=== PATIENT | female | born 1990 | race Caucasian/White ===

== ENCOUNTER 2017-02-10 14:16 | Inpatient (IN) | payer OTHER ==
[~2017-02-10] VITALS: Ht 165.1 cm; Wt 63.0 kg
[2017-02-10 15:08] LABS: CALCIUM 9.1 mg/dL (8.5-10.1); CARBON DIOXIDE 23.9 mmol/L (21-32); CHLORIDE SERUM 104 mmol/L (98-107); CREATININE SERUM 0.8 mg/dL (0.6-1.0); GFR1 > 60 mL/min; GLUCOSE SERUM 122 mg/dL (74-106); POTASSIUM SERUM 3.3 mmol/L (3.5-5.1); SODIUM SERUM 140 mmol/L (136-145)
[2017-02-10 15:09] LABS: BASOPHIL % 0.3 % (0-2); PLATELET COUNT 278 x10^3mcL (130-400); RED CELL DISTRIBUTION WIDTH 14.4 % (11.5-14.5)
[2017-02-10 15:12] LABS: ALBUMIN 4.1 g/dL (3.4-5.0); ALKALINE PHOSPHATASE 55 U/L (46-116); ALT/SGPT 12 U/L (14-59); AST/SGOT 12 U/L (15-37); BILIRUBIN TOTAL 0.4 mg/dL (0.20-1.00); TOTAL PROTEIN, SERUM 7.9 g/dL (6.4-8.2)
[2017-02-10] MEDS ORDERED: ZYRTEC10 MG (15:59)
[2017-02-10] MEDS ORDERED: SINGULAIR10 MG PO ×2 (16:00→16:01)
[2017-02-10] MEDS ORDERED: TRAZODONE50 M1 PO (16:00)
[2017-02-10] MEDS ORDERED: DEPAKOTE ER250 M1 PO (16:01)
[2017-02-10 16:57] LABS: MAGNESIUM 1.6 mg/dL (1.8-2.4); PHOSPHOROUS 2.9 mg/dL (2.5-4.9)
[2017-02-10 17:00] LABS: CHOLESTEROL/HDL RATIO 2.1
[2017-02-10 17:04] LABS: T3 TOTAL 1.19 ng/mL
[2017-02-10 17:37] LABS: FREE T4 1.63 ng/dL (0.76-1.46); FREE THYROXINE INDEX 4.3 ug/dL (1.4-4.5); T4(THYROXINE) 11.1 ug/dL (4.7-13.3)
[2017-02-10] MEDS ORDERED: ZOLOFT100 MG PO (18:22)
[2017-02-10 20:57] VITALS: BP 105/76
[2017-02-11 01:31] LABS: microscopic required? NO
[2017-02-11 01:41] LABS: UA SPECIFIC GRAVITY 1.015 (1.005-1.035); urine erythrocyte NEGATIVE (NEGATIVE)
[2017-02-11 01:50] LABS: AMPHETAMINE QUAL UR NONE DETECTED (NEG <=1000)
[2017-02-11 06:29] VITALS: BP 112/69
[2017-02-11 06:31] LABS: CARBON DIOXIDE 23.7 mmol/L (21-32); CHLORIDE SERUM 104 mmol/L (98-107); CREATININE SERUM 0.8 mg/dL (0.6-1.0); GFR1 > 60 mL/min; GLUCOSE SERUM 83 mg/dL (74-106); MAGNESIUM 2.3 mg/dL (1.8-2.4); PHOSPHOROUS 2.6 mg/dL (2.5-4.9); POTASSIUM SERUM 4.1 mmol/L (3.5-5.1); SODIUM SERUM 138 mmol/L (136-145)
[2017-02-11 06:34] LABS: BASOPHIL % 0.3 % (0-2); PLATELET COUNT 234 x10^3mcL (130-400)
[2017-02-11 06:39] LABS: RED CELL DISTRIBUTION WIDTH 14.7 % (11.5-14.5)
[2017-02-11 09:53] VITALS: BP 120/62
[2017-02-11 13:27] VITALS: BP 113/66
[2017-02-11 17:35] VITALS: BP 133/66
[2017-02-11 22:20] VITALS: BP 131/78
[2017-02-12 06:11] VITALS: BP 113/74
[2017-02-12 07:30] LABS: CALCIUM 8.7 mg/dL (8.5-10.1); CARBON DIOXIDE 24.7 mmol/L (21-32); CHLORIDE SERUM 103 mmol/L (98-107); CREATININE SERUM 0.7 mg/dL (0.6-1.0); GFR1 > 60 mL/min; GLUCOSE SERUM 95 mg/dL (74-106); POTASSIUM SERUM 3.9 mmol/L (3.5-5.1); SODIUM SERUM 137 mmol/L (136-145)
[2017-02-12 09:35] VITALS: BP 134/78
[2017-02-12 13:58] VITALS: BP 125/80
[2017-02-12 21:39] VITALS: BP 121/69
[2017-02-13 06:18] VITALS: BP 117/77
[2017-02-13 06:42] LABS: BASOPHIL % 0.4 % (0-2); PLATELET COUNT 256 x10^3mcL (130-400)
[2017-02-13 06:54] LABS: CALCIUM 8.7 mg/dL (8.5-10.1); CARBON DIOXIDE 23.7 mmol/L (21-32); CHLORIDE SERUM 104 mmol/L (98-107); CREATININE SERUM 0.7 mg/dL (0.6-1.0); GFR1 > 60 mL/min; GLUCOSE SERUM 118 mg/dL (74-106); MAGNESIUM 1.6 mg/dL (1.8-2.4); PHOSPHOROUS 2.9 mg/dL (2.5-4.9); POTASSIUM SERUM 3.8 mmol/L (3.5-5.1); SODIUM SERUM 139 mmol/L (136-145)
[2017-02-13 08:38] VITALS: BP 113/60
[2017-02-13] MEDS ORDERED: SERO100 PO (13:24)
[2017-02-13 13:37] VITALS: BP 113/60
[2017-02-13 13:52] VITALS: BP 113/77
== END 2017-02-13 14:05 | disposition home or self-care (01) | DRG 812 ==
LOC: ED 14:16 → DU 17:22 → ED 20:05 → DU 20:43
PROVIDERS: Specialist; ADMIT Family Medicine
DX: T42.6X2A Poisoning by other antiepileptic and sedative-hypnotic drugs, intentional self-harm, initial encounter (principal); K72.91 Hepatic failure, unspecified with coma; G92 Toxic encephalopathy; T48.6X2A Poisoning by antiasthmatics, intentional self-harm, initial encounter; T40.7X1A Poisoning by cannabis (derivatives), accidental (unintentional), initial encounter; F31.9 Bipolar disorder, unspecified; E87.6 Hypokalemia; E83.42 Hypomagnesemia; J45.909 Unspecified asthma, uncomplicated; Y92.009 Unspecified place in unspecified non-institutional (private) residence as the place of occurrence of the external cause
CPT/HCPCS: 83880; 84439; G0480; J3475; J7030